=== PATIENT | female | born 1945 | race Hispanic/Latino ===

== ENCOUNTER 2025-01-11 14:15 | Emergency (ER) | payer MEDICARE, BC ==
[2025-01-11] MEDS ORDERED: Acetaminophen 500 MG TAB ONE (16:33)
== END 2025-01-11 17:38 | disposition home or self-care (01) ==
LOC: ERS 14:15
DX: M25.561 Pain in right knee (principal); M25.511 Pain in right shoulder; M25.521 Pain in right elbow; E11.9 Type 2 diabetes mellitus without complications; Z79.899 Other long term (current) drug therapy; W19.XXXA Unspecified fall, initial encounter
CPT/HCPCS: 70450; 72125; 96374; J2270